=== PATIENT | male | born 1965 | race American Indian/Alaskan Native ===

== ENCOUNTER 2016-09-05 11:26 | Outpatient (CLI) | payer OTHER ==
[2016-09-05 11:49] LABS: Hematocrit 42.8 % (35.5-45.6); Hemoglobin 14.5 gm/dl (11.8-15.2); Mean Corpuscular HGB Conc 34 % (32-34); Mean Corpuscular Hemoglobin 30 pg (28-32); Mean Corpuscular Volume 90 fl (84-94); Platelet Count 152 K/mm3 (140-440); Red Blood Count 4.79 M/mm3 (3.65-5.03); Red Cell Distribution Width 13.5 % (13.2-15.2); White Blood Count 6.9 K/mm3 (4.5-11.0)
[2016-09-05 12:10] LABS: Erythrocyte Sedimentation Rate 2 mm/Hr (0-20)
[2016-09-05 12:36] LABS: Anion Gap 17 mmol/L; Blood Urea Nitrogen 15 mg/dL (9-20); Carbon Dioxide 25 mmol/L (22-30); Chloride 99.1 mmol/L (98-107); Potassium 4.1 mmol/L (3.6-5.0); Sodium 137 mmol/L (137-145)
[2016-09-05 12:37] LABS: Alanine Aminotransferase 30 units/L (7-56); Bilirubin,Total 0.3 mg/dL (0.1-1.2); Creatine Kinase 604 units/L (55-170); Glucose 88 mg/dL (75-100); Total Protein 7.4 g/dL (6.3-8.2)
[2016-09-05 12:38] LABS: Albumin 4.4 g/dL (3.9-5); Albumin/Globulin Ratio 1.5 %; Alkaline Phosphatase 132 units/L (35-129)
== END 2016-09-05 11:27 | disposition home or self-care (01) ==
LOC: LAB 11:26
PROVIDERS: ATTEND Specialist
DX: R53.83 Other fatigue (principal)
CPT/HCPCS: 36415; 80053; 82550; 85027; 85652

== ENCOUNTER 2017-03-28 06:10 | Outpatient (CLI) | payer OTHER ==
[2017-03-28 07:19] LABS: Blood Urea Nitrogen 16 mg/dL (9-20)
[2017-03-28] MEDS ORDERED: NACL ONE (07:47)
--- NOTE | 2017-03-28 08:49 | Cat Scan Report ---
CT SCAN OF THE ABDOMEN AND PELVIS WITH CONTRAST: HISTORY: Epigastric abdominal pain, GERD. TECHNIQUE: Helical CT in 1.25mm intervals following IV contrast. Sagittal and coronal reconstructions. FINDINGS: The liver is normal in size and is without focal defect. No gallstones or biliary dilatation are noted. The spleen and pancreas demonstrate a normal size and attenuation with no evidence of abnormal mass. The kidneys are normal in size and position with no evidence of hydronephrosis or mass. The adrenal glands are normal. There is no intestinal obstruction or ascites. Normal appendix. The abdominal aorta is normal. No abnormalities are identified within the retroperitoneum or mesentery. There is no evidence of peritoneal air or fluid. There is no evidence of any abnormal masses or fluid collections within the pelvis. No adenopathy is identified. The bladder is normal. Right inguinal hernia repair changes are suspected. No recurrent hernia or other abnormality in this area. IMPRESSION: Essentially unremarkable CT of the abdomen and pelvis. No significant change since 03/14/16.
== END 2017-03-28 06:11 | disposition home or self-care (01) ==
LOC: CT 06:10
PROVIDERS: ATTEND Internal Medicine Gastroenterology
DX: K21.9 Gastro-esophageal reflux disease without esophagitis (principal); K30 Functional dyspepsia
CPT/HCPCS: 36415; 74177; 82565; 84520; Q9967